=== PATIENT | male | born 1960 | race Two or more races ===

== ENCOUNTER 2024-04-29 03:48 | Emergency (ER) | payer MEDICAID, SELFPAY ==
[2024-04-29 03:49] VITALS: BMI 28.2
--- NOTE | 2024-04-29 04:01 | EKG_ITS ---
[facility] Test Date: 2024-04-29 Pat Name: CARSON HOPE Department: Room: - Gender: Male Counseling Psychologist: : 1960 Requested By: ED Temporary Provider Order Number: [id number] Reading MD: ED Temporary Provider Measurements Intervals [place] Rate: 82 P: 35 SC: 150 QRS: 3 QRSD: 82 T: -5 QT: 332 QTc: 390 Interpretive Statements SINUS RHYTHM Compared to ECG 05/05/2023 15:00:56 T-wave abnormality no longer present /store/S0/[id number]
--- NOTE | 2024-04-29 04:03 | XR_ITS ---
Examination: PA lateral chest 2 views TECHNIQUE: Upright PA lateral chest 2 views Exam date and time: April 29, 2024 0424 hours Comparison May 05, 2023 INDICATIONS: Chest pain today FINDINGS: Normal heart size Lungs are clear. The osseous structures are intact IMPRESSION: No active disease
[2024-04-29 04:04] VITALS: BP 179/96; PULSE 85; RESP 20; TEMP 36.6; O2SAT 99
--- NOTE | 2024-04-29 04:21 | PD.EDRME ---
Rapid Medical Screening Exam RME Arrival date/time: 04/29/24 03:48 63 year old male present to Ed for c/o chest pain. I have greeted and performed a focused initial assessment of this patient. A comprehensive ED assessment and evaluation of the patient, analysis of all test results, and completion of the medical decision making process will be conducted by additional ED providers. Chief Complaint: Chest Pain Time Seen by Provider: 04/29/24 03:52 Vital signs: Vital Signs Temperature 97.9 F 04/29/24 04:04 Pulse Rate 85 04/29/24 04:04 Respiratory Rate 20 04/29/24 04:04 Blood Pressure 179/96 H 04/29/24 04:04 Pulse Oximetry (%) 99 04/29/24 04:04 Oxygen Delivery Method Room Air 04/29/24 04:04
[2024-04-29] MEDS: ASPIRIN 81 MG CHEW 324 MG PO (04:34)
[2024-04-29 04:55] LABS: Basophils % (Auto) 0 % (0-2.5); Eosinophils # (Auto) 0.1 Thou/mm3 (0.0-0.5); Eosinophils % (Auto) 2 % (0-10); Hematocrit 45.5 % (41.0-53.0); Hemoglobin 15.6 g/dL (13.5-16.0); Immature Granulocytes % (Auto) 1 % (0-0); Immature Granulocytes Auto 0.04 Thou/mm3 (0.00-0.00); Lymphocytes # (Auto) 2.1 Thou/mm3 (1.0-4.8); Lymphocytes % (Auto) 35 % (10-50); Mean Corpuscular HGB Conc 34.3 g/dl (31.0-37.0); Mean Corpuscular Hemoglobin 28.3 pg (25.0-35.0); Mean Corpuscular Volume 83 fL (80-100); Monocytes # (Auto) 0.4 Thou/mm3 (0.0-0.8); Monocytes % (Auto) 6 % (0-12); Neutrophils # (Auto) 3.5 Thou/mm3 (1.8-7.7); Neutrophils % (Auto) 56 % (37-80); Nucleated Red Blood Cell % 0 /100 WBC (0); Platelet Count 229 Thou/mm3 (140-440); RDW Standard Deviation 39.6 fL (35.1-43.9); Red Blood Count 5.51 Miln/mm3 (4.50-5.90); White Blood Count 6.2 Thou/mm3 (3.8-10.6)
[2024-04-29 05:18] LABS: Alanine Aminotransferase 21 U/L (10-49); Albumin, Serum 4.5 gm/dL (3.4-4.8); Alkaline Phosphatase 87 U/L (46-116); Anion Gap 8 (7-16); Aspartate Amino Transferase 13 U/L (0-34); BUN/Creatinine Ratio 15 Ratio (12-20); Bilirubin,Total 0.5 mg/dL (0.3-1.2); Blood Urea Nitrogen 15 mg/dL (9-23); Calcium 9.4 mg/dL (8.3-10.6); Calcium (Corrected) 9.4 mg/dL (8.5-10.1); Carbon Dioxide 26.7 mMol/L (20.0-31.0); Chloride 106 mMol/L (98-107); Estimated Creatinine Clearance 91.3 mL/min (>60); Globulin 2.2 gm/dL (2.3-3.5); Glucose 134 mg/dL (74-106); Lipase 50 U/L (12-53); Magnesium 2.1 mg/dL (1.6-2.6); Osmolality,Calculated 284 (275-295); Potassium 4.1 mMol/L (3.4-5.1); Sodium 141 mMol/L (136-145); Total Protein 6.7 gm/dL (5.7-8.2); Troponin I < 0.002 ng/mL (0.0-0.045); eGFR > 60 See Note
[2024-04-29 07:58] LABS: Troponin I < 0.002 ng/mL (0.0-0.045)
[2024-04-29 09:17] VITALS: BP 179/92; PULSE 86; RESP 16; TEMP 36.7; O2SAT 95
--- NOTE | 2024-04-29 09:24 | EDNOTE_ITS ---
<Statement entered by Yoana Holt MD - 05/06/24 14:48> As co-signing physician, I was present and available for consult prn. I concur with the plan and care as documented by the midlevel provider. ED Chest Pain RME/HPI General Chief Complaint: Chest Pain Stated Complaint: Tightness in chest/R arm Weak/numb x2 days Time Seen by Provider: 04/29/24 03:52 Source: patient Arrival date/time: 04/29/24 03:48 63-year-old male with a history of hypertension presents to the emergency room with a chief complaint of chest tightness and right arm weakness and numbness x 2 days. Mode of arrival: ambulatory Limitations: no limitations RME / HPI RME / HPI narrative: 04/29/24 03:48 63 year old male present to Ed for c/o chest pain. I have greeted and performed a focused initial assessment of this patient. A comprehensive ED assessment and evaluation of the patient, analysis of all test results, and completion of the medical decision making process will be conducted by additional ED providers. Related Data Home Medications ?Medication ?Instructions ?Recorded ?Confirmed losartan 100 mg tablet 100 mg PO QDAY 12/18/20 12/19/20 simvastatin 40 mg tablet 40 mg PO HS 12/18/20 12/19/20 Previous Rx's ?Medication ?Instructions ?Recorded albuterol sulfate 90 mcg/actuation 1 puff inhalation QID PRN 12/14/20 aerosol inhaler (ProAir HFA) shortness of breath or wheezing #18 grams dexamethasone 6 mg tablet 6 mg PO QDAY #10 tabs 12/14/20 (Decadron) Allergies Allergy/AdvReac Type Severity Reaction Status Date / Time erythromycin base Allergy Severe Rash Verified 05/05/23 14:49 Review of Systems Review of Systems Systems Reviewed: All systems reviewed, normal except as documented Constitutional Constitutional: Reports system reviewed and no additional complaints, except as documented, Denies fatigue, Denies fever(s), Denies headache(s) and Denies weakness Eyes Eyes: Reports system reviewed and no additional complaints, except as documented, Denies blurry vision and Denies change in vision ENT Ears, Nose, Mouth, and Throat: Reports system reviewed and no additional complaints, except as documented, Denies otalgia, Denies headache(s), Denies nasal congestion, Denies throat swelling and Denies vertigo Cardiovascular Cardiovascular: Reports system reviewed and no additional complaints, except as documented, Reports chest pain, Denies dyspnea, Denies dyspnea on exertion, Denies lightheadedness, Denies paroxysmal nocturnal dyspnea, Reports radiating jaw, neck or arm pain, Denies rapid heart rate and Denies slow heart rate Respiratory Respiratory: Reports system reviewed and no additional complaints, except as documented, Denies chest congestion, Denies cough, Denies dyspnea, Denies dyspnea on exertion and Denies wheezing Gastrointestinal Gastrointestinal: Reports system reviewed and no additional complaints, except as documented, Denies abdominal pain, Denies cramping, Denies nausea and Denies vomiting Genitourinary Genitourinary: Reports system reviewed and no additional complaints, except as documented, Denies dysuria and Denies hematuria Musculoskeletal Musculoskeletal: Reports system reviewed and no additional complaints, except as documented and Denies back pain Integumentary/Breasts Skin/Breast: Reports system reviewed and no additional complaints, except as documented and Denies wounds Neurologic Neurologic: Reports system reviewed and no additional complaints, except as documented, Denies confusion, Denies headache(s), Denies lack of coordination, Denies vertigo and Denies weakness Psychiatric Psychiatric: Reports system reviewed and no additional complaints, except as documented, Denies anxiety, Denies confusion, Denies depression, Denies paranoia, Denies suicidal ideation and Denies tactile hallucinations Endocrine Endocrine: Reports system reviewed and no additional complaints, except as documented and Denies fatigue Hematologic/Lymphatic Hematologic/Lymphatic: Reports system reviewed and no additional complaints, except as documented and Denies lymphadenopathy Allergic/Immunologic Allergic/Immunologic: Reports system reviewed and no additional complaints, except as documented, Denies throat swelling, Denies urticaria and Denies wheezing ED Exam General Limitations: Present no limitations General appearance: Present alert and in no apparent distress Head Head exam: Present atraumatic Eye Eye exam: Present normal appearance, PERRL and EOMI ENT ENT exam: Present normal exam, normal oropharynx and mucous membranes moist Neck Neck exam: Present normal inspection, full ROM and trachea midline Chest Chest inspection: Present normal inspection and symmetric chest wall rise Respiratory Respiratory exam: Present normal lung sounds bilaterally Cardiovascular Cardiovascular exam: Present regular rate, normal rhythm and normal heart sounds Abdominal Exam Abdominal exam: Present soft and normal bowel sounds Extremities Exam Extremities exam: Present normal inspection and full ROM Back Exam Back exam: Present normal inspection and full ROM Neurological Exam Neurological exam: Present alert, oriented X3 and CN II-XII intact Psychiatric Psychiatric exam: Present normal affect and normal mood Skin Skin exam: Present warm, dry, intact and normal color Course Quality Measures none Orders Category Date Time Status EKG (ED ONLY) *Do not use* NOW Care 04/29/24 04:01 Completed EKG (ED Only) Stat Exams 04/29/24 04:01 Draft XR chest 2V Stat Exams 04/29/24 04:03 Taken CBC Stat Lab 04/29/24 04:40 Completed CMP [Comprehensive Metabolic Panel] Stat Lab 04/29/24 04:40 Completed Lipase Stat Lab 04/29/24 04:40 Completed Mag [Magnesium] Stat Lab 04/29/24 04:40 Completed Troponin I Stat Lab 04/29/24 04:40 Completed Troponin I Stat Lab 04/29/24 07:07 Completed Aspirin Chew Med 04/29/24 04:28 Discontinued 324 mg PO X1 ONE Vital Signs Vital signs: Vital Signs Temperature 97.9 F 04/29/24 04:04 Pulse Rate 85 04/29/24 04:04 Respiratory Rate 20 04/29/24 04:04 Blood Pressure 179/96 H 04/29/24 04:04 Pulse Oximetry (%) 99 04/29/24 04:04 Oxygen Delivery Method Room Air 04/29/24 04:04 O2 saturation 99% within normal limits Chest Pain MDM Narrative MDM Narrative:: 63-year-old male with a history of hypertension presents to the emergency room with a chief complaint of chest tightness and right arm weakness and numbness x 2 days. Clinically the patient appears nontoxic and in no apparent distress. During my reevaluation the patient's chest pain is no longer there. EKG shows normal sinus rhythm at [address] deviation. Patient CBC and CMP were within normal limits troponin was negative repeat troponin in 3 hours was also negative. Patient is currently asymptomatic patient was educated to follow-up with primary care provider and return to the emergency room for any evidence of worsening signs or symptoms Patient data External records reviewed:: [facility] previous records Clinical information provided by:: patient Social determinants that could affect healthcare access:: none Patient has the following chronic illnesses:: Hypertension How is presenting disease/condition affected by chronic disease/condition?: exacerbated by Evaluation data The following diagnostics were reviewed and interpreted by me:: lab results and radiology exam(s) Lab and/or radiology exams considered but not ordered:: Labs and radiology exams considered and ordered Interpretation Summary: N/A Medications / Prescriptions Medications or Prescriptions considered but not ordered:: Medication given Medication administrations:: Medication Administration History Discontinued Medications Aspirin (Aspirin 81 Mg Chew) 324 mg PO X1 ONE Stop: 04/29/24 04:29 Last Admin: 04/29/24 04:34 Dose: 324 mg Documented By: CB Medication given Consultations Consultation(s) initiated? (list below): No Diagnosis Chest Pain Differential Diagnosis: stable angina, atypical chest pain, st elevation myocardial infarction and chest pain Most likely diagnosis given after review of the tests above:: Chest pain Admission Indicated Admission indicated?: not indicated Admission Request Was there a request for admission?: No Disposition Plan Disposition Plan: Discharge Discharge Attestation Discharge Attestation: The patient and all family members were given an opportunity to ask questions and understood the discharge instructions. Discharge instructions specifically effects, indications for sooner follow up or return to the emergency department, and the expected course of current diagnosis. Patient condition: Stable Discharge Plan Plan Patient Disposition: HOME (Self Care) Disposition Comment: Stable Prescriptions/Referrals Prescriptions/Med Rec: No Action simvastatin 40 mg tablet 40 mg PO HS Patient Comments: take 1 tablet by mouth once daily losartan 100 mg tablet 100 mg PO QDAY Hold Instructions: Resume on 12/03/21. Patient Comments: take 1 tablet by mouth once daily dexamethasone [Decadron] 6 mg tablet 6 mg PO QDAY Qty: 10 0RF albuterol sulfate [ProAir HFA] 90 mcg/actuation HFA aerosol inhaler 1 puff inhalation QID PRN (Reason: shortness of breath or wheezing) Qty: 18 0RF Referrals: Misha Christianson MD [Primary Care Provider] - In 1 week Problem List Clinical Impression: Chest pain Patient/Caregiver Discharge Instructions Education Materials: ED Chest Pain, Noncardiac, ED Chest Pain, Uncertain Cause Additional Instructions: Please follow-up with your primary care provider in the next 24 to 48 hours. Your cardiac workup was negative for any acute findings at this time. EKG was normal. For any evidence of worsening signs or symptoms please return to the emergency room immediately Print Language: Lao Stand Alone Forms: Rae Award Info., Patient Portal Info Letter PA/JACKLYN Supervising Physician TONI/JACKLYN Supervising Physician: Dr. HOLT
== END 2024-04-29 09:25 | disposition home or self-care (01) ==
PROVIDERS: Nurse Practitioner Family; Physician Assistant; Emergency Provider Emergency Medicine; PCP Family Medicine
DX: R07.9 Chest pain, unspecified (principal); I10 Essential (primary) hypertension
CPT/HCPCS: 36415; 71046; 80053; 83690; 83735; 84484; 85025; 93005; 99283; A9270

== ENCOUNTER 2024-06-07 09:00 | Day surgery (SDC) | payer MEDICAID, SELFPAY ==
[2024-06-06 10:40] VITALS: BMI 27.1
[2024-06-06 12:15] LABS: Basophils % (Auto) 0 % (0-2.5); Eosinophils # (Auto) 0.1 Thou/mm3 (0.0-0.5); Eosinophils % (Auto) 2 % (0-10); Hematocrit 45.7 % (41.0-53.0); Hemoglobin 15.9 g/dL (13.5-16.0); Immature Granulocytes % (Auto) 0 % (0-0); Immature Granulocytes Auto 0.02 Thou/mm3 (0.00-0.00); Lymphocytes # (Auto) 1.9 Thou/mm3 (1.0-4.8); Lymphocytes % (Auto) 32 % (10-50); Mean Corpuscular HGB Conc 34.8 g/dl (31.0-37.0); Mean Corpuscular Hemoglobin 28.7 pg (25.0-35.0); Mean Corpuscular Volume 83 fL (80-100); Monocytes # (Auto) 0.4 Thou/mm3 (0.0-0.8); Monocytes % (Auto) 6 % (0-12); Neutrophils # (Auto) 3.5 Thou/mm3 (1.8-7.7); Neutrophils % (Auto) 59 % (37-80); Nucleated Red Blood Cell % 0 /100 WBC (0); Platelet Count 244 Thou/mm3 (140-440); RDW Standard Deviation 38.5 fL (35.1-43.9); Red Blood Count 5.54 Miln/mm3 (4.50-5.90); White Blood Count 5.9 Thou/mm3 (3.8-10.6)
[2024-06-06 12:24] LABS: Alanine Aminotransferase 24 U/L (10-49); Albumin, Serum 4.5 gm/dL (3.4-4.8); Alkaline Phosphatase 86 U/L (46-116); Anion Gap 8 (7-16); Aspartate Amino Transferase 18 U/L (0-34); BUN/Creatinine Ratio 19 Ratio (12-20); Bilirubin,Total 0.5 mg/dL (0.3-1.2); Blood Urea Nitrogen 19 mg/dL (9-23); Calcium 9.6 mg/dL (8.3-10.6); Calcium (Corrected) 9.6 mg/dL (8.5-10.1); Carbon Dioxide 27.7 mMol/L (20.0-31.0); Chloride 106 mMol/L (98-107); Globulin 2.3 gm/dL (2.3-3.5); Glucose 159 mg/dL (74-106); Osmolality,Calculated 288 (275-295); Potassium 3.9 mMol/L (3.4-5.1); Sodium 142 mMol/L (136-145); Total Protein 6.8 gm/dL (5.7-8.2); eGFR > 60 See Note
[2024-06-06 12:33] LABS: Partial Thromboplastin Time 28.5 Seconds (22.0-36.0); Prothrombin Time 10.9 Seconds (9.0-12.2)
--- NOTE | 2024-06-06 14:46 | ESHP_ITS ---
RE: CARSON HOPE : 1960 DATE OF ADMISSION: 06/07/2024 DATE OF SURGERY: 06/07/2024 HISTORY OF PRESENT ILLNESS: This patient was referred by Curt Cheema at the [facility] for two masses on the upper and lower back. He has had this lump for a period of about 3 years and it is located in the upper back and the other one in the lower back, left to the midline. Both of these lumps are not giving him any severe pain, but they are getting larger and he wants them removed. The patient denies any other major medical problems. PAST MEDICAL HISTORY: The patient's past medical history revealed hypertension and cholesterol. MEDICATIONS: 1. Losartan. 2. Potassium. 3. Atorvastatin. 4. Vitamin C. 5. Zinc. PHYSICAL EXAMINATION: VITAL SIGNS: His vital signs revealed temperature of 98.6, pulse 94, BP 161/94. He is 73 inches tall and weighing 208 pounds. GENERAL: A well-built, well-nourished 63-year-old male who appeared to be his stated age. HEENT: Head normal. Eyes, ears and throat normal. NECK: Normal. CHEST: Revealed good breath sounds on both sides. HEART: Sinus rhythm with no murmurs. ABDOMEN: Examination of abdomen is unremarkable. BACK: Examination of the back showed soft tissue mass in the thoracic region measuring about 7 cm in diameter, seemed to be located in the subcutaneous tissue. On the lower back just to the left of the midline, the patient has another soft tissue massing 4 cm in diameter and it appears to be a lipoma. IMPRESSION: 1. Benign soft tissue mass of the chest and back 2. Essential hypertension. 3. Cholesterol. COURSE OF ACTION: I advised the patient to undergo excision of this mass under MAC or monitored anesthesia in the hospital, the patient is agreeable. DT: 12:09:05 TT: 14:44:00 Ref: [id number] - TID: [id number] MTDD
[2024-06-07 09:40] VITALS: BP 162/96; PULSE 77; RESP 24; TEMP 36.2; O2SAT 95; BMI 26.6
[2024-06-07] MEDS: RINGERS LACTATED 1000 ML 1,000 ML 20 ML IV (09:56)
--- NOTE | 2024-06-07 12:32 | ESOP_ITS ---
Date of Procedure 06/07/24 Pre Op Diagnosis Soft tissue mass upper back as well as lower back Post Op Diagnosis Same Procedure Excision of the soft tissue mass upper and lower back Findings Patient had a mass in the upper back about 6 to 7 cm in diameter which is located in the subcutaneous tissue. The lower back lesion was the lumbar region and it was about 4 cm in diameter. Procedure Description Of the patient was brought to the operating room he was placed in prone position and entire upper back was washed with ChloraPrep solution draped in a sterile manner. Patient was given sedation. Timeout was performed. Then injected 1% Xylocaine with sodium bicarbonate and injected transversely in the lower lumbar region over the mass. The transverse incision was made for about 5 cm in length and the mass was located deep below the subcutaneous tissue. By incising the deep fascia below the fascia this mass was found. I excised this with [place] and delivered it. Then the subcutaneous tissue was closed with 3-0 chromic and the skin was closed with 4-0 Monocryl. Then the mass in the upper back was approached and here I made a vertical incision. This was about 6 to 7 cm in diameter and it was located in the subcutaneous tissue. I dissected out this mass by using Jodie retractors and right angle retractors. After excising the entire mass all the way down to the fascia the bleeding points were controlled with cautery and 3-0 chromic sutures. Then approximated the subcutaneous tissue with 3-0 chromic and the skin was cl osed with 4-0 Monocryl subcuticular stitch. Dressing was applied with Adaptic and 4 x 4 gauze and patient tolerated the procedure well. Anesthesia MAC Pathology / specimen Other (Mass in the upper back and lower back) Estimated Blood Loss 40 Surgeon Sarah Singh MD Surgical Staff Operation Date: 06/07/24 11:45 Case Staff Anesthesiologist: Giovanni Chisholm RNkinesiotherapist: Ashlie Martinez
[2024-06-07 12:34] VITALS: BP 117/73; PULSE 67; RESP 16; TEMP 36.3; O2SAT 95
[2024-06-07 12:40] VITALS: BP 117/73; PULSE 67; RESP 16; TEMP 36.3; O2SAT 95
[2024-06-07 12:45] VITALS: BP 123/74; PULSE 67; RESP 15; TEMP 36.3; O2SAT 95
[2024-06-07 12:50] VITALS: BP 131/77; PULSE 65; RESP 14; TEMP 36.3; O2SAT 96
[2024-06-07 13:00] VITALS: BP 133/84; PULSE 61; RESP 16; TEMP 36.4; O2SAT 95
== END 2024-06-07 13:10 | disposition home or self-care (01) ==
PROVIDERS: PCP Physician Assistant; Referring Provider Surgery; Visit Provider Surgery
PROC: (CPT 21931; principal; 2024-06-07 11:45)
DX: D17.0 Benign lipomatous neoplasm of skin and subcutaneous tissue of head, face and neck (principal); I10 Essential (primary) hypertension; E78.5 Hyperlipidemia, unspecified
CPT/HCPCS: 21931; 36415; 80053; 85025; 85610; 85730; A4217; A4649; J1100; J1200; J2250; J2704; J2710; J3010; J3490; J7120; J1596

== ENCOUNTER 2024-12-23 10:15 | Emergency (ER) | payer MEDICAID, SELFPAY ==
--- NOTE | 2024-12-23 | XR_ITS ---
Examination: MRI brain without intravenous contrast. Date and time of exam: December 23, 2024, 1201 hours INDICATIONS: Right-sided facial numbness and right arm numbness beginning 3 days ago Technique: Multiple axial and sagittal images of the brain obtained. Siemens high-resolution 1.5 Gillian short bore scanners utilized. Sagittal sections, T1-weighted, TR 500, TE 14, are performed. Axial sections proton-density and T2-weighted have been obtained. Inversion recovery axial images, TR 9, 260, TE 111, TI 2500. Diffusion weighted images, axial sections, TR 4800, TE 128, B value 1000 Axial sections, ADC map, TR 4800, TE 128 Findings: Enlargement of the sella turcica is not present. The optic chiasm and infundibular are not remarkable. Prepontine and interpeduncular cisterns are not enlarged. There is no localized enlargement of the medulla or josh. Fourth ventricle and cerebellar tonsils appear normal in position. No subacute area of hemorrhage density is seen. Mass in the cerebellopontine angle region is not evident. Globes symmetrical. Orbital musculature including medial lateral rectus muscles do not exhibit abnormality. Diffusion-weighted images demonstrate no focus of restricted diffusion. Increased white matter signal evident, scattered punctate foci increased signal in this report matter and left cerebellar hemisphere Mass effect upon the ventricular system is not identified. Impression: Negative for acute hemorrhage mass effect or midline shift No acute infarct. Scattered punctate foci increased signal in the cerebral white matter, consider chronic microvascular white matter change, less likely demyelinating disease but clinical correlation advised
[2024-12-23 10:16] VITALS: BMI 25.0
--- NOTE | 2024-12-23 10:18 | EKG_ITS ---
[facility] Test Date: 2024-12-23 Pat Name: CARSON HOPE Department: Room: - Gender: Male Validation Specialist: : 1960 Requested By: ED Temporary Provider Order Number: [id number] Reading MD: ED Temporary Provider Measurements Intervals Ava Rate: 99 P: 56 DE: 144 QRS: 34 QRSD: 94 T: 30 QT: 339 QTc: 436 Interpretive Statements SINUS RHYTHM MODERATE ST DEPRESSION [0.05+ mV ST DEPRESSION] Compared to ECG 04/29/2024 04:19:18 ST (T wave) deviation now present /store/S0/[id number]
[2024-12-23 10:28] VITALS: BP 148/87; PULSE 110; RESP 18; TEMP 36.6; O2SAT 98
--- NOTE | 2024-12-23 10:36 | XR_ITS ---
Examination: AP chest single view TECHNIQUE: AP portable upright chest single view Date and time: December 23, 2024, 1039 hours, comparison April 29, 2024 INDICATIONS: Coughing shortness of breath beginning 3 days ago. FINDINGS: Normal heart size. No interval pneumonia or pulmonary edema. Moderate osteopenia IMPRESSION: No interval pneumonia or pulmonary edema
[2024-12-23 10:49] LABS: Basophils # (Auto) 0.0 Thou/mm3 (0.0-0.2); Basophils % (Auto) 0 % (0-2.5); Eosinophils # (Auto) 0.1 Thou/mm3 (0.0-0.5); Eosinophils % (Auto) 1 % (0-10); Hematocrit 46.9 % (41.0-53.0); Hemoglobin 16.1 g/dL (13.5-16.0); Immature Granulocytes Auto 0.02 Thou/mm3 (0.00-0.00); Lymphocytes # (Auto) 2.1 Thou/mm3 (1.0-4.8); Lymphocytes % (Auto) 26 % (10-50); Mean Corpuscular HGB Conc 34.3 g/dl (31.0-37.0); Mean Corpuscular Hemoglobin 28.6 pg (25.0-35.0); Mean Corpuscular Volume 84 fL (80-100); Monocytes # (Auto) 0.4 Thou/mm3 (0.0-0.8); Monocytes % (Auto) 4 % (0-12); Neutrophils # (Auto) 5.4 Thou/mm3 (1.8-7.7); Neutrophils % (Auto) 68 % (37-80); Nucleated Red Blood Cell # 0.00 Thou/mm3 (0.00-0.00); Nucleated Red Blood Cell % 0 /100 WBC (0); Platelet Count 256 Thou/mm3 (140-440); RDW Standard Deviation 40.8 fL (35.1-43.9); Red Blood Count 5.62 Miln/mm3 (4.50-5.90); White Blood Count 8.0 Thou/mm3 (3.8-10.6)
[2024-12-23 11:08] LABS: INR 1.1 (0.9-1.3); Partial Thromboplastin Time 27.5 Seconds (22.0-36.0); Prothrombin Time 11.5 Seconds (9.0-12.2)
[2024-12-23 11:09] LABS: Alanine Aminotransferase 23 U/L (10-49); Albumin, Serum 4.8 gm/dL (3.4-4.8); Albumin/Globulin Ratio 1.9 (1.2-2.2); Alkaline Phosphatase 77 U/L (46-116); Anion Gap 11 (7-16); Aspartate Amino Transferase 17 U/L (0-34); BUN/Creatinine Ratio 13 Ratio (12-20); Bilirubin,Total 0.9 mg/dL (0.3-1.2); Blood Urea Nitrogen 13 mg/dL (9-23); Calcium 10.1 mg/dL (8.3-10.6); Calcium (Corrected) 10.1 mg/dL (8.5-10.1); Carbon Dioxide 26.0 mMol/L (20.0-31.0); Chloride 104 mMol/L (98-107); Creatinine (Component) 1.0 mg/dL (0.6-1.3); Estimated Creatinine Clearance 83.0 mL/min (>60); Globulin 2.5 gm/dL (2.3-3.5); Glucose 130 mg/dL (74-106); Osmolality,Calculated 283 (275-295); Potassium 3.4 mMol/L (3.4-5.1); Sodium 141 mMol/L (136-145); Total Protein 7.3 gm/dL (5.7-8.2); Troponin I < 0.002 ng/mL (0.0-0.045); eGFR > 60 See Note
[2024-12-23 11:35] VITALS: PULSE 78
[2024-12-23 11:49] LABS: Collection Type, Urine Clean Catch; Squamous Epithelial Cell,Urine 0 /hpf (0-5)
[2024-12-23 12:02] LABS: Bilirubin,Urine Negative (Negative); Blood,Urine Negative (Negative); Clarity,Urine Clear (Clear/Hazy); Color,Urine Yellow (Lt Yel-Yel); Glucose, Urine Negative (Negative); Ketones,Urine Negative (Negative); Leukocyte Esterase,Urine Negative (Negative); Nitrite,Urine Negative (Negative); PH,Urine 6.5 (5.0-7.0); Protein,Urine Trace (Neg - Trace); RBC,Urine 1 /hpf (0-3); Specific Gravity,Urine 1.026 (1.001-1.035); Urobilinogen,Urine Negative mg/dL (0.0-1.0); WBC,Urine < 1 /hpf (0-5)
--- NOTE | 2024-12-23 12:59 | EDNOTE_ITS ---
ED General RME/HPI General Chief complaint: Neuro Symptoms/Deficit Stated complaint: RIGHT SIDE BODY TINGLING FOR 2 DAYS Time Seen by Provider: 12/23/24 10:25 Arrival date/time: 12/23/24 10:15 Limitations: no limitations RME / HPI RME / HPI narrative: 64 year old male with history of hypertension and hyperlipidemia presents to the ED for evaluation of right facial, right neck, and right arm tingling sensation beginning intermittently 2 days ago. 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 No other complaints reported. Denies, fevers, chills, cough, shortness of breath, abdominal pain, n/v, changes in speech or gait. Related Data Home Medications ?Medication ?Instructions ?Recorded ?Confirmed simvastatin 40 mg tablet 40 mg PO HS 12/18/20 5 losartan 100 1 tab PO QDAY 06/06/2406/07 mg-hydrochlorothiazide 25 mg tablet Previous Rx's ?Medication ?Instructions ?Recorded hydrocodone 5 mg-acetaminophen 325 1 tab PO Q6H #20 ta bs 06/07/24 mg tablet Allergies Allergy/AdvReac Type Severity Reaction Status Date / Time erythromycin base Allergy Severe Rash Verified 12/23/24 10:17 Review of Systems Review of Systems Systems Reviewed: All systems reviewed, normal except as documented Past Medical History Past Medical History CARDIAC: Positive Cardiac Disorders, Hypercholesterolemia and Hypertension RESPIRATORY: Positive Pneumonia (Covid) OTHER HISTORY: Positive Hospitalization (Covid) Social History SMOKING STATUS: Never smoker ED Exam General Limitations: Present no limitations General appearance: Present alert and in no apparent distress Head Head exam: Present atraumatic, normocephalic and normal inspection Eye Eye exam: Present normal appearance, PERRL and EOMI ENT ENT exam: Present normal exam, normal oropharynx and mucous membranes moist Neck Neck exam: Present normal inspection, full ROM and trachea midline Chest Chest inspection: Present normal inspection and symmetric chest wall rise Respiratory Respiratory exam: Present normal lung sounds bilaterally Cardiovascular Cardiovascular exam: Present regular rate, normal rhythm and normal heart sounds Abdominal Exam Abdominal exam: Present soft and normal bowel sounds Extremities Exam Extremities exam: Present normal inspection and full ROM Back Exam Back exam: Present normal inspection and full ROM Neurological Exam Neurological exam: Present alert, oriented X3 and CN II-XII intact Psychiatric Psychiatric exam: Present normal affect and normal mood Skin Skin exam: Present warm, dry, intact and normal color Course Quality Measures none Orders Category Date Time Status Casino Floorperson NOW Care 12/23/24 10:36 Completed Continuous Pulse Oximetry NOW Care 12/23/24 10:36 Completed EKG (ED ONLY) *Do not use* NOW Care 12/23/24 10:18 Completed Insert IV NOW Care 12/23/24 10:36 Completed MRI Screening NOW Care 12/23/24 10:53 Completed EKG (ED Only) Stat Exams 12/23/24 10:18 Draft MR head/brain wo con Stat Exams 12/23/24 Completed XR chest 1V portable Stat Exams 12/23/24 10:36 Completed CBC Stat Lab 12/23/24 10:44 Completed Comprehensive Metabolic Panel Stat Lab 12/23/24 10:44 Completed Partial Thromboplastin Time Stat Lab 12/23/24 10:44 Completed Prothrombin Time with INR Stat Lab 12/23/24 10:44 Completed Troponin I Stat Lab 12/23/24 10:44 Completed Urinalysis Stat Lab 12/23/24 11:30 Completed ALPRazoLAM [Xanax] Med 12/23/24 10:54 Discontinued 0.25 mg PO X1 ONE Vital Signs Vital signs: Vital Signs Temperature 98 F 12/23/24 10:28 Pulse Rate 110 H 12/23/24 10:28 Respiratory Rate 18 12/23/24 10:28 Blood Pressure 148/87 H 12/23/24 10:28 Pulse Oximetry (%) 98 12/23/24 10:28 Oxygen Delivery Method Room Air 12/23/24 10:28 Pulse ox is 98% on room air which is adequate. Critical Care Time Critical Care Time Critical Care Time: No Discharge Plan Plan Patient Disposition: HOME (Self Care) Prescriptions/Referrals Prescriptions/Med Rec: No Action simvastatin 40 mg tablet 40 mg PO HS Patient Comments: take 1 tablet by mouth once daily losartan-hydrochlorothiazide 100-25 mg tablet 1 tab PO QDAY hydrocodone-acetaminophen 5-325 mg tablet 1 tab PO Q6H MDD 4 Qty: 20 0RF Referrals: Wayne Denson PA-C [Primary Care Provider] - In 1 week Problem List Clinical Impression: Paresthesias, Paresthesia of right arm, Facial paresthesia Patient/Caregiver Discharge Instructions Education Materials: ED Paraesthesias Additional Instructions: Follow-up with your medical doctor. Consider consultation with a neurologist regarding the paresthesias. Also the neurologist can review the MRI brain that was done. Continue your usual medications. Print Language: Faroese Stand Alone Forms: Rae Award Info., Patient Portal Info Letter MDM Narrative [facility] hospital course: Queta Venegas am scribing for and in the presence of Dr. Lyman. Clinical Information Provided by patient Medical Records Reviewed [facility] I reviewed ED visit on 05/05/2023 Meds/Rx Considered, not Ordered None Labs/Rad/Tests considered, not Ordered None Chronic Illness/Social Conditions which may negatively complicate care or outcome(s)-explain: None or not applicable EKG Interpretation EKG #1: Date/time of EK12/23/24 10:31 AM EKG interpretation: NSR, rate 99, no acute ischemic changes Lab Interpretation Lab(s) interpretation(s): CBC and CMP are within normal limits UA negative for infection Imaging Radiology reports / interpretation(s): Ordering Physician: Latrell Lyman MD Date of Service: 12/23/24 Procedure(s): MR head/brain wo con Accession Number(s): [id number] cc: Latrell Lyman MD; Stephen Tracey MD; Wayne Denson PA-C~ Examination: MRI brain without intravenous contrast. Date and time of exam: December 23, 2024, 1201 hours INDICATIONS: Right-sided facial numbness and right arm numbness beginning 3 days ago Technique: Multiple axial and sagittal images of the brain obtained. Siemens high-resolution 1.5 Gillian short bore scanners utilized. Sagittal sections, T1-weighted, TR 500, TE 14, are performed. Axial sections proton-density and T2-weighted have been obtained. Inversion recovery axial images, TR 9, 260, TE 111, TI 2500. Diffusion weighted images, axial sections, TR 4800, TE 128, B value 1000 Axial sections, ADC map, TR 4800, TE 128 Findings: Enlargement of the sella turcica is not present. The optic chiasm and infundibular are not remarkable. Prepontine and interpeduncular cisterns are not enlarged. There is no localized enlargement of the medulla or josh. Fourth ventricle and cerebellar tonsils appear normal in position. No subacute area of hemorrhage density is seen. Mass in the cerebellopontine angle region is not evident. Globes symmetrical. Orbital musculature including medial lateral rectus muscles do not exhibit abnormality. Diffusion-weighted images demonstrate no focus of restricted diffusion. Increased white matter signal evident, scattered punctate foci increased signal in this report matter and left cerebellar hemisphere Mass effect upon the ventricular system is not identified. Impression: Negative for acute hemorrhage mass effect or midline shift No acute infarct. Scattered punctate foci increased signal in the cerebral white matter, consider chronic microvascular white matter change, less likely demyelinating disease but clinical correlation advised Dictated By: Stephen Tracey MD Signed By: <Electronically signed by Stephen Tracey MD in [place]> 12/23/24 1225 Ordering Physician: Latrell Lyman MD Date of Service: 12/23/24 Procedure(s): XR chest 1V portable Accession Number(s): [id number] cc: Latrell Lyman MD; Stephen Tracey MD; Wayne Denson PA-C~ Examination: AP chest single view TECHNIQUE: AP portable upright chest single view Date and time: December 23, 2024, 1039 hours, comparison April 29, 2024 INDICATIONS: Coughing shortness of breath beginning 3 days ago. FINDINGS: Normal heart size. No interval pneumonia or pulmonary edema. Moderate osteopenia IMPRESSION: No interval pneumonia or pulmonary edema Dictated By: Stephen Tracey MD Signed By: <Electronically signed by Stephen Tracey MD in [place]> 12/23/24 1104 Medication Administration(s) Medication Administration History Discontinued Medications Alprazolam (Alprazolam 0.25 Mg Tablet) 0.25 mg PO X1 ONE Stop: 12/23/24 10:55 Last Admin: 12/23/24 11:31 Dose: 0.25 mg Documented By: DB See above Diagnosis Most likely dx, and/or detailed dx discussion: Right facial and right arm paresthesia Dispositon Disposition: Discharge Home
[2024-12-23 13:53] VITALS: BP 129/89; PULSE 61; RESP 18; TEMP 36.7; O2SAT 99
== END 2024-12-23 13:54 | disposition home or self-care (01) ==
PROVIDERS: Emergency Provider Family Medicine; PCP Physician Assistant
DX: R20.2 Paresthesia of skin (principal); R05.9 Cough, unspecified; R06.02 Shortness of breath; R90.82 White matter disease, unspecified; R94.31 Abnormal electrocardiogram [ECG] [EKG]
CPT/HCPCS: 36415; 70551; 71045; 80053; 81001; 84484; 85025; 85610; 85730; 93005; 99284; A9270